=== PATIENT | male | born 1960 | race Caucasian/White ===

== ENCOUNTER 2018-07-15 19:54 | Inpatient (IN) | payer OTHER, MEDICAID ==
[~2018-07-15] VITALS: Ht 177.8 cm; Wt 168.8 kg
[2018-07-15] MEDS ORDERED: BENA20 PO (20:08)
[2018-07-15] MEDS ORDERED: OXYC10 PO (20:08)
[2018-07-15] MEDS ORDERED: BACL10TA PO (20:08)
[2018-07-15] MEDS ORDERED: LEVO125 PO (20:08)
[2018-07-15] MEDS ORDERED: CARV25 PO (20:08)
[2018-07-15] MEDS ORDERED: SPIR50 PO (20:08)
[2018-07-15] MEDS ORDERED: MORP15 PO (20:08)
[2018-07-15] MEDS ORDERED: OxyCODONE HCL/ACETAMINOPHEN 5-325 MG TABLET PO ONE (22:00)
[2018-07-15] MEDS ORDERED: CEPHALEXIN MONOHYDRATE 500 MG CAPSULE PO ONE (22:00)
[2018-07-15 22:08] LABS: BASOPHILS % (AUTO) 0.6 % (0.0-2.0); EOSINOPHILS % (AUTO) 1.6 % (1.0-6.0); HEMATOCRIT 44.5 % (41-53); HEMOGLOBIN 15.3 g/dL (13.5-17.5); LYMPHOCYTES # (AUTO) 1.5 K/uL (1.0-4.8); LYMPHOCYTES % (AUTO) 17.4 % (22.0-44.0); MEAN CORPUSCULAR HEMOGLOBIN 29.9 pg (26.0-34.0); MEAN CORPUSCULAR HGB CONC 34.4 G/dL (31.0-37.0); MEAN CORPUSCULAR VOLUME 87 fL (80-100); MONOCYTES # (AUTO) 0.8 K/uL (0.1-1.0); MONOCYTES % (AUTO) 9.2 % (2.0-9.0); NEUTROPHILS % (AUTO) 71.2 % (40.0-70.0); PLATELET COUNT (AUTO) 146 K/uL (150-450); RED BLOOD CELL COUNT(AUTO) 5.13 MIL/uL (4.50-5.90); RED CELL DISTRIBUTION WIDTH 14.4 % (11.5-14.5)
[2018-07-15 22:10] LABS: ANION GAP 7 mmol/L (8-16); CALCIUM, TOTAL 8.6 mg/dL (8.8-10.5); CARBON DIOXIDE 29 mmol/L (22-29); CHLORIDE 104 mmol/L (98-107); CREATININE 0.79 mg/dL (0.60-1.30); GLOMERULAR FILTR. RATE CALC > 60 mL/min (>60); GLUCOSE,RANDOM 114 mg/dL (70-110); POTASSIUM 3.8 mmol/L (3.5-5.1); SODIUM SERUM 140 mmol/L (136-145); UREA NITROGEN, BLOOD 16 mg/dL (7-18)
[2018-07-15 22:16] LABS: ALANINE AMINOTRANSFERASE 44 U/L (12-78); ALBUMIN 3.1 g/dL (3.4-5.0); ALKALINE PHOSPHATASE 66 U/L (46-116); ASPARTATE AMINOTRANSFERASE 28 U/L (15-37); BILIRUBIN,TOTAL 0.5 mg/dL (0.1-1.0)
[2018-07-15 23:16] LABS: AMPHET/METH SCREEN,URINE NEGATIVE (NEGATIVE); BARBITURATE SCREEN, URINE NEGATIVE (NEGATIVE); BENZODIAZEPINES SCREEN,URINE NEGATIVE (NEGATIVE); CANNABINOID SCREEN,URINE NEGATIVE (NEGATIVE); COCAINE SCREEN,URINE NEGATIVE (NEGATIVE); METHADONE SCREEN, URINE NEGATIVE (NEGATIVE); OPIATE SCREEN,URINE POSITIVE (NEGATIVE)
[2018-07-15 23:17] LABS: PHENCYCLIDINE SCREEN,URINE NEGATIVE (NEGATIVE)
[2018-07-15] MEDS: HALOPERIDOL 5 MG TABLET PO PRN (23:42)
[2018-07-15] MEDS: LORazepam 2 MG TABLET PO PRN (23:42)
[2018-07-16 04:55] LABS: APPEARANCE,URINE CLEAR (CLEAR); BILIRUBIN,URINE NEGATIVE (NEGATIVE); GLUCOSE, URINE (UA) NEGATIVE (NEGATIVE); KETONES,URINE NEGATIVE (NEGATIVE); LEUKOCYTE ESTERASE ,URINE NEGATIVE (NEGATIVE); NITRATE,URINE NEGATIVE (NEGATIVE); OCCULT BLOOD,URINE NEGATIVE (NEGATIVE); PH,URINE 6.5 (5.0-8.0); PROTEIN,URINE NEGATIVE (NEGATIVE)
[2018-07-16 06:59] LABS: CHOL/HDL RATIO 4.4 (4.2-7.3); CHOLESTEROL 131 mg/dL (131-200); HDL CHOLESTEROL 30 mg/dL (40-60); LDL CHOL (CALC.) 85 mg/dL (0-130); TRIGLYCERIDES 80 mg/dL (15-150)
[2018-07-16] MEDS ORDERED: CARVEDILOL 3.125 MG TABLET PO ONE (08:45)
[2018-07-16] MEDS ORDERED: BENAZEPRIL HCL 20 MG TABLET PO ONE (08:45)
[2018-07-16] MEDS ORDERED: DOCUSATE SODIUM 100 MG CAPSULE PO PRN (11:00)
[2018-07-16] MEDS ORDERED: MAGNESIUM HYDROXIDE SUSPENSION 30 ML UDCUP PO PRN (11:00)
[2018-07-16] MEDS ORDERED: NICOTINE 14 MG/24 HOUR PATCH TD PRN ×2 (11:00→13:45)
[2018-07-16] MEDS ORDERED: CloNIDine HCL 0.1 MG TABLET PO PRN (11:00)
[2018-07-16] MEDS ORDERED: MAG HYDROX/AL HYDROX/SIMETH ES 30 ML SUSPENSION UDCUP PO PRN (11:00)
[2018-07-16] MEDS ORDERED: ACETAMINOPHEN 325 MG TABLET PO PRN (11:00)
[2018-07-16] MEDS ORDERED: IBUPROFEN 400 MG TABLET PO PRN (11:00)
[2018-07-16] MEDS ORDERED: PETROLATUM,WHITE 71 GM JELLY TP PRN (11:00)
[2018-07-16] MEDS ORDERED: ALBUTEROL SULFATE HFA 90 MCG/PUFF 8 GM INHALER IH PRN (11:00)
[2018-07-16] MEDS ORDERED: ONDANSETRON HCL 4 MG TABLET PO PRN (11:00)
[2018-07-16] MEDS ORDERED: LOPERAMIDE HCL 2 MG CAPSULE PO PRN (11:00)
[2018-07-16] MEDS ORDERED: GuaiFENesin/D-METHORPHAN [SUGAR-FREE] 200-20MG/10 ML SYRUP UDCUP PO PRN (11:00)
[2018-07-16] MEDS: HydrALAZINE HCL 25 MG TABLET PO SCH ×2 (11:30→17:23)
[2018-07-16 15:29] VITALS: BP 147/77
[2018-07-16] MEDS: NYSTATIN 15 GM POWDER BOTTLE TP SCH (17:23)
[2018-07-16] MEDS: CEPHALEXIN MONOHYDRATE 500 MG CAPSULE PO SCH (17:23)
[2018-07-16] MEDS: SULFAMETHOX/TRIMETH DS 800-160 MG/TABLET PO SCH (17:23)
[2018-07-16 18:30] VITALS: BP 157/88
[2018-07-16] MEDS ORDERED: CARVEDILOL 25 MG TABLET PO SCH (21:00)
[2018-07-16] MEDS: ZOLPIDEM TARTRATE 10 MG TABLET PO PRN (23:05)
[2018-07-17 06:30] VITALS: BP 166/78
[2018-07-17] MEDS ORDERED: LEVOTHYROXINE SODIUM 125 MCG TABLET PO SCH (06:30)
[2018-07-17] MEDS: LEVOTHYROXINE SODIUM 125 MCG TABLET PO SCH (06:39)
[2018-07-17 08:45] VITALS: BP 186/106
[2018-07-17] MEDS: SULFAMETHOX/TRIMETH DS 800-160 MG/TABLET PO SCH ×2 (08:52→17:45)
[2018-07-17] MEDS: CARVEDILOL 25 MG TABLET PO SCH ×2 (08:52→17:44)
[2018-07-17] MEDS: CEPHALEXIN MONOHYDRATE 500 MG CAPSULE PO SCH ×3 (08:52→17:44)
[2018-07-17] MEDS: HydrALAZINE HCL 25 MG TABLET PO SCH ×2 (08:52→17:45)
[2018-07-17] MEDS: BENAZEPRIL HCL 20 MG TABLET PO SCH (08:52)
[2018-07-17] MEDS: SPIRONOLACTONE 50 MG TABLET PO SCH (08:52)
[2018-07-17 09:00] VITALS: BP 152/84
[2018-07-17] MEDS ORDERED: BENAZEPRIL HCL 20 MG TABLET PO SCH (09:00)
[2018-07-17] MEDS: NYSTATIN 15 GM POWDER BOTTLE TP SCH ×3 (09:00→18:00)
[2018-07-17] MEDS ORDERED: SPIRONOLACTONE 50 MG TABLET PO SCH (09:00)
[2018-07-17 10:00] VITALS: BP 152/84
[2018-07-17] MEDS: SERTRALINE HCL 50 MG TABLET PO SCH (16:15)
[2018-07-17 17:38] LABS: GLUCOMETER DEV NAME(LOC) 3EX 1; GLUCOSE,POINT OF CARE 91 MG/DL (70-110)
[2018-07-17 18:00] VITALS: BP 150/85
[2018-07-17] MEDS: ZOLPIDEM TARTRATE 10 MG TABLET PO PRN (23:18)
[2018-07-18 01:15] VITALS: BP 153/98
[2018-07-18] MEDS: LORazepam 2 MG TABLET PO PRN (01:23)
[2018-07-18] MEDS: LEVOTHYROXINE SODIUM 125 MCG TABLET PO SCH (06:43)
[2018-07-18 08:01] VITALS: BP 164/118
[2018-07-18] MEDS: CARVEDILOL 25 MG TABLET PO SCH ×2 (09:25→18:02)
[2018-07-18] MEDS: SULFAMETHOX/TRIMETH DS 800-160 MG/TABLET PO SCH ×2 (09:25→18:02)
[2018-07-18] MEDS: HydrALAZINE HCL 25 MG TABLET PO SCH ×3 (09:25→18:02)
[2018-07-18] MEDS: CEPHALEXIN MONOHYDRATE 500 MG CAPSULE PO SCH ×3 (09:25→18:02)
[2018-07-18] MEDS: BENAZEPRIL HCL 20 MG TABLET PO SCH (09:25)
[2018-07-18] MEDS: SERTRALINE HCL 50 MG TABLET PO SCH (09:25)
[2018-07-18] MEDS: NYSTATIN 15 GM POWDER BOTTLE TP SCH ×3 (09:26→18:02)
[2018-07-18] MEDS: SPIRONOLACTONE 50 MG TABLET PO SCH (09:26)
[2018-07-18 13:13] VITALS: BP 135/83
[2018-07-18 17:00] VITALS: BP 140/96
[2018-07-18] MEDS: ZOLPIDEM TARTRATE 10 MG TABLET PO PRN (21:40)
[2018-07-19] MEDS: LEVOTHYROXINE SODIUM 125 MCG TABLET PO SCH (06:54)
[2018-07-19 08:15] VITALS: BP 165/100
[2018-07-19] MEDS: NYSTATIN 15 GM POWDER BOTTLE TP SCH ×3 (09:02→16:32)
[2018-07-19] MEDS: BENAZEPRIL HCL 20 MG TABLET PO SCH (09:03)
[2018-07-19] MEDS: SERTRALINE HCL 50 MG TABLET PO SCH (09:03)
[2018-07-19] MEDS: HydrALAZINE HCL 25 MG TABLET PO SCH ×2 (09:03→12:57)
[2018-07-19] MEDS: SULFAMETHOX/TRIMETH DS 800-160 MG/TABLET PO SCH ×2 (09:03→16:32)
[2018-07-19] MEDS: CARVEDILOL 25 MG TABLET PO SCH ×2 (09:03→17:00)
[2018-07-19] MEDS: SPIRONOLACTONE 50 MG TABLET PO SCH (09:03)
[2018-07-19] MEDS: CEPHALEXIN MONOHYDRATE 500 MG CAPSULE PO SCH ×3 (09:03→16:31)
[2018-07-19 12:57] VITALS: BP 164/80
[2018-07-19 16:30] VITALS: BP 151/89
[2018-07-19] MEDS: HydrALAZINE HCL 50 MG TABLET PO SCH (16:31)
[2018-07-19] MEDS: ZOLPIDEM TARTRATE 10 MG TABLET PO PRN (20:15)
[2018-07-19] MEDS: HALOPERIDOL 5 MG TABLET PO PRN (20:19)
[2018-07-20 00:05] VITALS: BP 156/97
[2018-07-20] MEDS: LORazepam 2 MG TABLET PO PRN (00:11)
[2018-07-20] MEDS: LEVOTHYROXINE SODIUM 125 MCG TABLET PO SCH (06:59)
[2018-07-20] MEDS: CARVEDILOL 25 MG TABLET PO SCH ×2 (08:55→16:50)
[2018-07-20] MEDS: BENAZEPRIL HCL 20 MG TABLET PO SCH (08:56)
[2018-07-20] MEDS: SPIRONOLACTONE 50 MG TABLET PO SCH (08:56)
[2018-07-20] MEDS: SULFAMETHOX/TRIMETH DS 800-160 MG/TABLET PO SCH ×2 (08:56→16:50)
[2018-07-20] MEDS: CEPHALEXIN MONOHYDRATE 500 MG CAPSULE PO SCH ×3 (08:56→16:50)
[2018-07-20] MEDS: HydrALAZINE HCL 50 MG TABLET PO SCH ×3 (08:56→16:49)
[2018-07-20] MEDS: SERTRALINE HCL 50 MG TABLET PO SCH (08:56)
[2018-07-20] MEDS: NYSTATIN 15 GM POWDER BOTTLE TP SCH ×3 (08:57→16:50)
[2018-07-20 09:00] VITALS: BP 165/94
[2018-07-20 13:00] VITALS: BP 132/72
[2018-07-20] MEDS: BuPROPion HCL XL 150 MG ER TABLET PO SCH (13:17)
[2018-07-20 16:35] VITALS: BP 139/90
[2018-07-20] MEDS: ZOLPIDEM TARTRATE 10 MG TABLET PO PRN (21:18)
[2018-07-21 00:57] VITALS: BP 137/85
[2018-07-21] MEDS: HALOPERIDOL 5 MG TABLET PO PRN ×2 (00:59→23:48)
[2018-07-21] MEDS: LEVOTHYROXINE SODIUM 125 MCG TABLET PO SCH (07:14)
[2018-07-21] MEDS: SPIRONOLACTONE 50 MG TABLET PO SCH (08:00)
[2018-07-21] MEDS: BENAZEPRIL HCL 20 MG TABLET PO SCH (08:00)
[2018-07-21] MEDS: SULFAMETHOX/TRIMETH DS 800-160 MG/TABLET PO SCH ×2 (08:00→16:35)
[2018-07-21] MEDS: CARVEDILOL 25 MG TABLET PO SCH ×2 (08:00→16:35)
[2018-07-21] MEDS: CEPHALEXIN MONOHYDRATE 500 MG CAPSULE PO SCH ×3 (08:00→16:35)
[2018-07-21] MEDS: BuPROPion HCL XL 150 MG ER TABLET PO SCH (08:00)
[2018-07-21] MEDS: SERTRALINE HCL 50 MG TABLET PO SCH (08:01)
[2018-07-21] MEDS: HydrALAZINE HCL 25 MG TABLET PO SCH ×3 (08:01→16:44)
[2018-07-21] MEDS: NYSTATIN 15 GM POWDER BOTTLE TP SCH ×3 (08:08→16:39)
[2018-07-21 08:17] VITALS: BP 134/76
[2018-07-21] MEDS: LORazepam 2 MG TABLET PO PRN ×2 (10:05→23:48)
[2018-07-21 17:40] VITALS: BP 147/79
[2018-07-22] MEDS: LEVOTHYROXINE SODIUM 125 MCG TABLET PO SCH (07:12)
[2018-07-22] MEDS: NYSTATIN 15 GM POWDER BOTTLE TP SCH ×3 (09:00→16:33)
[2018-07-22] MEDS: BuPROPion HCL XL 150 MG ER TABLET PO SCH (09:00)
[2018-07-22] MEDS: CARVEDILOL 25 MG TABLET PO SCH ×2 (09:11→16:33)
[2018-07-22] MEDS: SPIRONOLACTONE 50 MG TABLET PO SCH (09:12)
[2018-07-22] MEDS: HydrALAZINE HCL 25 MG TABLET PO SCH ×3 (09:12→16:33)
[2018-07-22] MEDS: CEPHALEXIN MONOHYDRATE 500 MG CAPSULE PO SCH ×3 (09:12→16:33)
[2018-07-22] MEDS: BENAZEPRIL HCL 20 MG TABLET PO SCH (09:12)
[2018-07-22] MEDS: SERTRALINE HCL 50 MG TABLET PO SCH (09:12)
[2018-07-22] MEDS: SULFAMETHOX/TRIMETH DS 800-160 MG/TABLET PO SCH ×2 (09:13→16:33)
[2018-07-22 10:09] VITALS: BP 130/78
[2018-07-22] MEDS: DULoxetine HCL 30 MG CAPSULE PO SCH (12:20)
[2018-07-22 17:30] VITALS: BP 141/93
[2018-07-22] MEDS: LORazepam 2 MG TABLET PO PRN (21:25)
[2018-07-22] MEDS: HALOPERIDOL 5 MG TABLET PO PRN (21:25)
[2018-07-22] MEDS: ZOLPIDEM TARTRATE 10 MG TABLET PO PRN (22:16)
[2018-07-23] MEDS: LEVOTHYROXINE SODIUM 125 MCG TABLET PO SCH (07:13)
[2018-07-23] MEDS: SPIRONOLACTONE 50 MG TABLET PO SCH ×2 (09:00→09:17)
[2018-07-23] MEDS: SERTRALINE HCL 50 MG TABLET PO SCH ×2 (09:00→09:17)
[2018-07-23] MEDS: SULFAMETHOX/TRIMETH DS 800-160 MG/TABLET PO SCH ×2 (09:17→16:15)
[2018-07-23] MEDS: CEPHALEXIN MONOHYDRATE 500 MG CAPSULE PO SCH ×3 (09:17→16:15)
[2018-07-23] MEDS: BENAZEPRIL HCL 20 MG TABLET PO SCH ×2 (09:17→16:15)
[2018-07-23] MEDS: CARVEDILOL 25 MG TABLET PO SCH ×2 (09:17→16:15)
[2018-07-23] MEDS: HydrALAZINE HCL 25 MG TABLET PO SCH ×3 (09:17→16:15)
[2018-07-23] MEDS: DULoxetine HCL 30 MG CAPSULE PO SCH (09:17)
[2018-07-23] MEDS: NYSTATIN 15 GM POWDER BOTTLE TP SCH ×3 (09:18→16:15)
[2018-07-23 09:30] VITALS: BP 159/99
[2018-07-23 19:13] VITALS: BP 123/69
[2018-07-23] MEDS: ZOLPIDEM TARTRATE 10 MG TABLET PO PRN (20:57)
[2018-07-23] MEDS: LORazepam 2 MG TABLET PO PRN (23:42)
[2018-07-23] MEDS: HALOPERIDOL 5 MG TABLET PO PRN (23:42)
[2018-07-24] MEDS: LEVOTHYROXINE SODIUM 125 MCG TABLET PO SCH (07:05)
[2018-07-24 08:34] VITALS: BP 148/85
[2018-07-24] MEDS: BENAZEPRIL HCL 20 MG TABLET PO SCH (08:58)
[2018-07-24] MEDS: HydrALAZINE HCL 25 MG TABLET PO SCH ×2 (08:58→12:39)
[2018-07-24] MEDS: SPIRONOLACTONE 50 MG TABLET PO SCH (08:58)
[2018-07-24] MEDS: CEPHALEXIN MONOHYDRATE 500 MG CAPSULE PO SCH ×2 (08:58→12:39)
[2018-07-24] MEDS: SULFAMETHOX/TRIMETH DS 800-160 MG/TABLET PO SCH (08:58)
[2018-07-24] MEDS: CARVEDILOL 25 MG TABLET PO SCH (08:58)
[2018-07-24] MEDS: NYSTATIN 15 GM POWDER BOTTLE TP SCH ×2 (09:00→13:02)
[2018-07-24] MEDS: DULoxetine HCL 30 MG CAPSULE PO SCH (09:00)
[2018-07-24] MEDS: SERTRALINE HCL 50 MG TABLET PO SCH (09:00)
[2018-07-24] MEDS ORDERED: DULO30CA2 PO (09:15)
[2018-07-24] MEDS ORDERED: SERT50TA12 PO (09:15)
[2018-07-24] MEDS ORDERED: CEPH500 PO (09:19)
[2018-07-24] MEDS ORDERED: NYST15PO3 TP (09:20)
[2018-07-24] MEDS ORDERED: SULF1TAB42 PO (09:20)
[2018-07-24] MEDS ORDERED: HYDR25TA84 PO (09:22)
[2018-07-24] MEDS ORDERED: NYST30CR9 TP (09:31)
== END 2018-07-24 15:15 | disposition home or self-care (01) | DRG 885 ==
LOC: EMS 19:55 → 3EI 07-16 13:27 → EMS 07-16 13:30 → 3EX 07-17 18:50
PROVIDERS: ADMIT Psychiatry & Neurology Psychiatry; ATTEND Psychiatry & Neurology Psychiatry
DX: F33.2 Major depressive disorder, recurrent severe without psychotic features (principal); Z68.43 Body mass index [BMI] 50.0-59.9, adult; F11.20 Opioid dependence, uncomplicated; L03.311 Cellulitis of abdominal wall; R45.851 Suicidal ideations; L03.116 Cellulitis of left lower limb; L03.115 Cellulitis of right lower limb; E03.9 Hypothyroidism, unspecified; E66.01 Morbid (severe) obesity due to excess calories; I10 Essential (primary) hypertension; Z91.041 Radiographic dye allergy status; Z91.040 Latex allergy status; Z59.0 Homelessness; Z91.5 Personal history of self-harm; Z79.899 Other long term (current) drug therapy; Z79.890 Hormone replacement therapy; Z71.51 Drug abuse counseling and surveillance of drug abuser; Z28.21 Immunization not carried out because of patient refusal
CPT/HCPCS: G0378; G0480

== ENCOUNTER 2018-09-30 04:19 | Inpatient (IN) | payer OTHER, MEDICAID ==
[~2018-09-30] VITALS: Ht 177.8 cm; Wt 161.0 kg
[~2018-09-30 04:19] MED LIST: BENA20 PO; CARV25 PO; CEPH500 PO; DULO30CA2 PO; HYDR25TA84 PO; LEVO125 PO; NYST30CR9 TP; SERT50TA12 PO; SPIR50 PO; SULF1TAB42 PO
[2018-09-30 05:24] LABS: BASOPHILS % (AUTO) 0.5 % (0.0-2.0); EOSINOPHILS % (AUTO) 1.5 % (1.0-6.0); HEMATOCRIT 46.8 % (41-53); HEMOGLOBIN 16.1 g/dL (13.5-17.5); LYMPHOCYTES # (AUTO) 1.5 K/uL (1.0-4.8); LYMPHOCYTES % (AUTO) 18.2 % (22.0-44.0); MEAN CORPUSCULAR HEMOGLOBIN 30.4 pg (26.0-34.0); MEAN CORPUSCULAR HGB CONC 34.4 G/dL (31.0-37.0); MEAN CORPUSCULAR VOLUME 88 fL (80-100); MONOCYTES # (AUTO) 0.7 K/uL (0.1-1.0); MONOCYTES % (AUTO) 8.9 % (2.0-9.0); NEUTROPHILS # (AUTO) 5.7 K/uL (1.8-7.7); NEUTROPHILS % (AUTO) 70.9 % (40.0-70.0); PLATELET COUNT (AUTO) 141 K/uL (150-450); RED CELL DISTRIBUTION WIDTH 14.8 % (11.5-14.5)
[2018-09-30 05:30] LABS: ANION GAP 10 mmol/L (8-16); CALCIUM, TOTAL 8.9 mg/dL (8.8-10.5); CARBON DIOXIDE 27 mmol/L (22-29); CHLORIDE 100 mmol/L (98-107); CREATININE 0.75 mg/dL (0.60-1.30); GLOMERULAR FILTR. RATE CALC > 60 mL/min (>60); GLUCOSE,RANDOM 111 mg/dL (70-110); POTASSIUM 3.5 mmol/L (3.5-5.1); SODIUM SERUM 137 mmol/L (136-145); UREA NITROGEN, BLOOD 16 mg/dL (7-18)
[2018-09-30 05:35] LABS: ALANINE AMINOTRANSFERASE 38 U/L (12-78); ALBUMIN 3.6 g/dL (3.4-5.0); ALKALINE PHOSPHATASE 63 U/L (46-116); ASPARTATE AMINOTRANSFERASE 25 U/L (15-37); BILIRUBIN,TOTAL 0.7 mg/dL (0.1-1.0); TOTAL PROTEIN, SERUM 7.8 g/dL (6.4-8.2)
[2018-09-30] MEDS ORDERED: LORazepam 2 MG TABLET PO PRN (06:00)
[2018-09-30] MEDS ORDERED: HALOPERIDOL 5 MG TABLET PO PRN (06:00)
[2018-09-30 10:13] LABS: BILIRUBIN,URINE NEGATIVE (NEGATIVE); GLUCOSE, URINE (UA) NEGATIVE (NEGATIVE); KETONES,URINE NEGATIVE (NEGATIVE); LEUKOCYTE ESTERASE ,URINE NEGATIVE (NEGATIVE); NITRATE,URINE NEGATIVE (NEGATIVE); OCCULT BLOOD,URINE NEGATIVE (NEGATIVE); PROTEIN,URINE NEGATIVE (NEGATIVE); UROBILINOGEN,URINE 0.2 mg/dL (<=1.0)
[2018-09-30 10:16] LABS: APPEARANCE,URINE HAZY (CLEAR)
[2018-09-30 10:19] LABS: AMPHET/METH SCREEN,URINE NEGATIVE (NEGATIVE); BARBITURATE SCREEN, URINE NEGATIVE (NEGATIVE); BENZODIAZEPINES SCREEN,URINE NEGATIVE (NEGATIVE); CANNABINOID SCREEN,URINE NEGATIVE (NEGATIVE); COCAINE SCREEN,URINE NEGATIVE (NEGATIVE); METHADONE SCREEN, URINE NEGATIVE (NEGATIVE); OPIATE SCREEN,URINE NEGATIVE (NEGATIVE); PHENCYCLIDINE SCREEN,URINE NEGATIVE (NEGATIVE)
[2018-09-30 19:05] VITALS: BP 167/82
[2018-09-30] MEDS ORDERED: LOPERAMIDE HCL 2 MG CAPSULE PO PRN (19:30)
[2018-09-30] MEDS ORDERED: DOCUSATE SODIUM 100 MG CAPSULE PO PRN (19:30)
[2018-09-30] MEDS ORDERED: MAG HYDROX/AL HYDROX/SIMETH ES 30 ML SUSPENSION UDCUP PO PRN (19:30)
[2018-09-30] MEDS ORDERED: ALBUTEROL SULFATE HFA 90 MCG/PUFF 8 GM INHALER IH PRN (19:30)
[2018-09-30] MEDS ORDERED: ONDANSETRON HCL 4 MG TABLET PO PRN (19:30)
[2018-09-30] MEDS ORDERED: CloNIDine HCL 0.1 MG TABLET PO PRN (19:30)
[2018-09-30] MEDS ORDERED: GuaiFENesin/D-METHORPHAN [SUGAR-FREE] 200-20MG/10 ML SYRUP UDCUP PO PRN (19:30)
[2018-09-30] MEDS ORDERED: NICOTINE 14 MG/24 HOUR PATCH TD PRN (19:30)
[2018-09-30] MEDS ORDERED: IBUPROFEN 400 MG TABLET PO PRN (19:30)
[2018-09-30] MEDS ORDERED: ACETAMINOPHEN 325 MG TABLET PO PRN (19:30)
[2018-09-30] MEDS ORDERED: MAGNESIUM HYDROXIDE SUSPENSION 30 ML UDCUP PO PRN (19:30)
[2018-09-30] MEDS ORDERED: PETROLATUM,WHITE 71 GM JELLY TP PRN (19:30)
[2018-10-01] MEDS: LEVOTHYROXINE SODIUM 125 MCG TABLET PO SCH (07:02)
[2018-10-01 08:00] VITALS: BP 138/66
[2018-10-01 08:32] LABS: HEMOGLOBIN A1C 5.3 % (4.5-6.2)
[2018-10-01] MEDS: SPIRONOLACTONE 50 MG TABLET PO SCH (09:00)
[2018-10-01] MEDS: BENAZEPRIL HCL 20 MG TABLET PO SCH ×2 (09:02→17:40)
[2018-10-01] MEDS: CARVEDILOL 25 MG TABLET PO SCH ×2 (09:02→17:40)
[2018-10-01] MEDS: HydrALAZINE HCL 25 MG TABLET PO SCH ×3 (09:03→17:40)
[2018-10-01] MEDS: NYSTATIN 30 GM CREAM TP SCH ×3 (09:05→17:39)
[2018-10-01 09:10] LABS: ALANINE AMINOTRANSFERASE 41 U/L (12-78); ALBUMIN 3.5 g/dL (3.4-5.0); ALKALINE PHOSPHATASE 60 U/L (46-116); ANION GAP 7 mmol/L (8-16); ASPARTATE AMINOTRANSFERASE 34 U/L (15-37); CALCIUM, TOTAL 8.6 mg/dL (8.8-10.5); CARBON DIOXIDE 29 mmol/L (22-29); CHLORIDE 103 mmol/L (98-107); CHOL/HDL RATIO 4.6 (4.2-7.3); CHOLESTEROL 157 mg/dL (131-200); GLOMERULAR FILTR. RATE CALC > 60 mL/min (>60); GLUCOSE,RANDOM 97 mg/dL (70-110); HDL CHOLESTEROL 34 mg/dL (40-60); LDL CHOL (CALC.) 109 mg/dL (0-130); POTASSIUM 3.7 mmol/L (3.5-5.1); SODIUM SERUM 139 mmol/L (136-145); THYROID STIMULATING HORMONE 24.88 uIU/mL (0.36-3.74); TOTAL PROTEIN, SERUM 7.5 g/dL (6.4-8.2); TRIGLYCERIDES 69 mg/dL (15-150); UREA NITROGEN, BLOOD 10 mg/dL (7-18)
[2018-10-01] MEDS ORDERED: SERTRALINE HCL 50 MG TABLET PO SCH (13:45)
[2018-10-01] MEDS: DULoxetine HCL 30 MG CAPSULE PO SCH (13:56)
[2018-10-01] MEDS: SERTRALINE HCL 100 MG TABLET PO SCH (13:56)
[2018-10-01 20:30] VITALS: BP 133/56
[2018-10-02] MEDS: ZOLPIDEM TARTRATE 10 MG TABLET PO PRN (00:19)
[2018-10-02] MEDS: LEVOTHYROXINE SODIUM 125 MCG TABLET PO SCH (07:11)
[2018-10-02 08:18] VITALS: BP 159/80
[2018-10-02] MEDS: DULoxetine HCL 30 MG CAPSULE PO SCH (09:00)
[2018-10-02] MEDS: SERTRALINE HCL 100 MG TABLET PO SCH (09:00)
[2018-10-02] MEDS: SPIRONOLACTONE 50 MG TABLET PO SCH (09:00)
[2018-10-02] MEDS: BENAZEPRIL HCL 20 MG TABLET PO SCH ×2 (09:00→17:50)
[2018-10-02] MEDS: NYSTATIN 30 GM CREAM TP SCH ×3 (09:00→17:00)
[2018-10-02] MEDS: CARVEDILOL 25 MG TABLET PO SCH ×2 (09:00→17:50)
[2018-10-02] MEDS: HydrALAZINE HCL 25 MG TABLET PO SCH ×3 (09:00→17:00)
[2018-10-02 16:36] VITALS: BP 145/101
[2018-10-03 02:45] VITALS: BP 158/96
[2018-10-03] MEDS: ZOLPIDEM TARTRATE 10 MG TABLET PO PRN ×2 (02:53→23:04)
[2018-10-03] MEDS: LEVOTHYROXINE SODIUM 125 MCG TABLET PO SCH (06:50)
[2018-10-03] MEDS: DULoxetine HCL 30 MG CAPSULE PO SCH ×2 (08:39→09:00)
[2018-10-03] MEDS: CARVEDILOL 25 MG TABLET PO SCH ×3 (08:39→16:38)
[2018-10-03] MEDS: BENAZEPRIL HCL 20 MG TABLET PO SCH ×3 (08:39→16:38)
[2018-10-03] MEDS: HydrALAZINE HCL 25 MG TABLET PO SCH ×4 (08:39→16:38)
[2018-10-03] MEDS: SPIRONOLACTONE 50 MG TABLET PO SCH ×2 (08:39→09:00)
[2018-10-03] MEDS: SERTRALINE HCL 100 MG TABLET PO SCH (09:00)
[2018-10-03] MEDS: NYSTATIN 30 GM CREAM TP SCH ×3 (09:00→16:39)
[2018-10-03 15:58] LABS: FREE T4 (FREE THYROXINE) 0.75 ng/dL (0.76-1.46)
[2018-10-03 19:16] VITALS: BP 136/98
[2018-10-04] MEDS: LEVOTHYROXINE SODIUM 125 MCG TABLET PO SCH (07:06)
[2018-10-04 08:00] VITALS: BP 160/90
[2018-10-04] MEDS: HydrALAZINE HCL 25 MG TABLET PO SCH ×3 (08:34→16:59)
[2018-10-04] MEDS: SPIRONOLACTONE 50 MG TABLET PO SCH (08:34)
[2018-10-04] MEDS: NYSTATIN 30 GM CREAM TP SCH ×3 (08:34→16:59)
[2018-10-04] MEDS: DULoxetine HCL 30 MG CAPSULE PO SCH (08:34)
[2018-10-04] MEDS: CARVEDILOL 25 MG TABLET PO SCH ×2 (08:34→16:59)
[2018-10-04] MEDS: BENAZEPRIL HCL 20 MG TABLET PO SCH ×2 (08:34→16:59)
[2018-10-04] MEDS: SERTRALINE HCL 100 MG TABLET PO SCH (08:34)
[2018-10-04 09:00] VITALS: BP 154/88
[2018-10-04 16:48] VITALS: BP 146/90
[2018-10-04] MEDS: ZOLPIDEM TARTRATE 10 MG TABLET PO PRN (22:50)
[2018-10-05] MEDS: LEVOTHYROXINE SODIUM 125 MCG TABLET PO SCH (07:00)
[2018-10-05 08:05] VITALS: BP 152/92
[2018-10-05] MEDS: SPIRONOLACTONE 50 MG TABLET PO SCH (08:40)
[2018-10-05] MEDS: DULoxetine HCL 30 MG CAPSULE PO SCH (08:41)
[2018-10-05] MEDS: HydrALAZINE HCL 25 MG TABLET PO SCH ×3 (08:41→16:37)
[2018-10-05] MEDS: CARVEDILOL 25 MG TABLET PO SCH ×2 (08:41→16:37)
[2018-10-05] MEDS: BENAZEPRIL HCL 20 MG TABLET PO SCH ×2 (08:41→16:37)
[2018-10-05] MEDS: SERTRALINE HCL 100 MG TABLET PO SCH (08:42)
[2018-10-05] MEDS: NYSTATIN 30 GM CREAM TP SCH ×3 (08:46→17:06)
[2018-10-05] MEDS: ZOLPIDEM TARTRATE 10 MG TABLET PO PRN (20:50)
[2018-10-05 21:13] VITALS: BP 153/86
[2018-10-06 02:12] VITALS: BP 178/102
[2018-10-06] MEDS: LEVOTHYROXINE SODIUM 125 MCG TABLET PO SCH (06:30)
[2018-10-06 08:05] VITALS: BP 169/103
[2018-10-06] MEDS: CARVEDILOL 25 MG TABLET PO SCH ×2 (08:17→16:39)
[2018-10-06] MEDS: BENAZEPRIL HCL 20 MG TABLET PO SCH ×2 (08:18→16:39)
[2018-10-06] MEDS: DULoxetine HCL 30 MG CAPSULE PO SCH (08:18)
[2018-10-06] MEDS: SERTRALINE HCL 100 MG TABLET PO SCH (08:18)
[2018-10-06] MEDS: HydrALAZINE HCL 25 MG TABLET PO SCH ×3 (08:18→16:39)
[2018-10-06] MEDS: SPIRONOLACTONE 50 MG TABLET PO SCH (08:23)
[2018-10-06] MEDS: TAMSULOSIN HCL 0.4 MG CAPSULE PO SCH (08:23)
[2018-10-06] MEDS: NYSTATIN 30 GM CREAM TP SCH ×3 (08:23→16:39)
[2018-10-06 21:54] VITALS: BP 156/79
[2018-10-07] MEDS: LEVOTHYROXINE SODIUM 125 MCG TABLET PO SCH (06:59)
[2018-10-07] MEDS: DULoxetine HCL 30 MG CAPSULE PO SCH (08:15)
[2018-10-07] MEDS: CARVEDILOL 25 MG TABLET PO SCH ×2 (08:15→16:44)
[2018-10-07] MEDS: BENAZEPRIL HCL 20 MG TABLET PO SCH ×2 (08:15→16:44)
[2018-10-07] MEDS: SPIRONOLACTONE 50 MG TABLET PO SCH (08:16)
[2018-10-07] MEDS: NYSTATIN 30 GM CREAM TP SCH ×3 (08:16→18:51)
[2018-10-07] MEDS: TAMSULOSIN HCL 0.4 MG CAPSULE PO SCH (08:16)
[2018-10-07] MEDS: SERTRALINE HCL 100 MG TABLET PO SCH (08:16)
[2018-10-07] MEDS: HydrALAZINE HCL 25 MG TABLET PO SCH ×3 (08:16→16:44)
[2018-10-07 08:30] VITALS: BP 148/92
[2018-10-07 17:00] VITALS: BP 143/76
[2018-10-07] MEDS: ZOLPIDEM TARTRATE 10 MG TABLET PO PRN (21:40)
[2018-10-08 06:25] VITALS: BP 149/103
[2018-10-08] MEDS: LEVOTHYROXINE SODIUM 125 MCG TABLET PO SCH (06:52)
[2018-10-08] MEDS: HydrALAZINE HCL 25 MG TABLET PO SCH ×3 (08:18→16:54)
[2018-10-08] MEDS: CARVEDILOL 25 MG TABLET PO SCH ×2 (08:19→16:54)
[2018-10-08] MEDS: BENAZEPRIL HCL 20 MG TABLET PO SCH ×2 (08:19→16:54)
[2018-10-08] MEDS: DULoxetine HCL 30 MG CAPSULE PO SCH (08:19)
[2018-10-08] MEDS: SERTRALINE HCL 100 MG TABLET PO SCH (08:19)
[2018-10-08] MEDS: TAMSULOSIN HCL 0.4 MG CAPSULE PO SCH (08:19)
[2018-10-08] MEDS: NYSTATIN 30 GM CREAM TP SCH ×3 (08:20→16:54)
[2018-10-08] MEDS: SPIRONOLACTONE 50 MG TABLET PO SCH (08:20)
[2018-10-08 08:30] VITALS: BP 137/86
[2018-10-08 16:53] VITALS: BP 139/80
[2018-10-08] MEDS: ZOLPIDEM TARTRATE 10 MG TABLET PO PRN (21:18)
[2018-10-09 04:15] VITALS: BP 158/94
[2018-10-09] MEDS: LEVOTHYROXINE SODIUM 125 MCG TABLET PO SCH (06:42)
[2018-10-09] MEDS: SPIRONOLACTONE 50 MG TABLET PO SCH (08:15)
[2018-10-09] MEDS: CARVEDILOL 25 MG TABLET PO SCH ×2 (08:15→16:21)
[2018-10-09] MEDS: DULoxetine HCL 30 MG CAPSULE PO SCH (08:16)
[2018-10-09] MEDS: SERTRALINE HCL 100 MG TABLET PO SCH (08:16)
[2018-10-09] MEDS: BENAZEPRIL HCL 20 MG TABLET PO SCH ×2 (08:16→16:21)
[2018-10-09] MEDS: TAMSULOSIN HCL 0.4 MG CAPSULE PO SCH (08:16)
[2018-10-09] MEDS: HydrALAZINE HCL 25 MG TABLET PO SCH ×3 (08:16→16:21)
[2018-10-09] MEDS: NYSTATIN 30 GM CREAM TP SCH ×3 (08:18→16:21)
[2018-10-09 10:00] VITALS: BP 130/74
[2018-10-09 20:02] VITALS: BP 132/75
[2018-10-09] MEDS ORDERED: SERT100T12 PO (23:44)
[2018-10-09] MEDS ORDERED: DULO30CA2 PO (23:44)
[2018-10-10] MEDS: LEVOTHYROXINE SODIUM 125 MCG TABLET PO SCH (06:46)
[2018-10-10 08:05] VITALS: BP 150/107
[2018-10-10] MEDS: NYSTATIN 30 GM CREAM TP SCH (08:49)
[2018-10-10] MEDS: DULoxetine HCL 30 MG CAPSULE PO SCH (08:49)
[2018-10-10] MEDS: TAMSULOSIN HCL 0.4 MG CAPSULE PO SCH (08:49)
[2018-10-10] MEDS: SPIRONOLACTONE 50 MG TABLET PO SCH (08:49)
[2018-10-10] MEDS: HydrALAZINE HCL 25 MG TABLET PO SCH (08:50)
[2018-10-10] MEDS: SERTRALINE HCL 100 MG TABLET PO SCH (08:50)
[2018-10-10] MEDS: BENAZEPRIL HCL 20 MG TABLET PO SCH (08:56)
[2018-10-10] MEDS: CARVEDILOL 25 MG TABLET PO SCH (08:57)
[2018-10-10] MEDS ORDERED: TAMS0.4C32 PO (09:05)
== END 2018-10-10 13:20 | disposition home or self-care (01) | DRG 885 ==
LOC: EMS 04:19 → 3EI 10:00 → 3EX 16:10
DX: F33.2 Major depressive disorder, recurrent severe without psychotic features (principal); Z68.43 Body mass index [BMI] 50.0-59.9, adult; R45.851 Suicidal ideations; D69.6 Thrombocytopenia, unspecified; E03.9 Hypothyroidism, unspecified; E66.01 Morbid (severe) obesity due to excess calories; F43.10 Post-traumatic stress disorder, unspecified; G47.00 Insomnia, unspecified; G89.29 Other chronic pain; I11.0 Hypertensive heart disease with heart failure; I50.9 Heart failure, unspecified; N40.0 Benign prostatic hyperplasia without lower urinary tract symptoms; Z59.0 Homelessness; Z79.899 Other long term (current) drug therapy; Z91.5 Personal history of self-harm; Z91.040 Latex allergy status; Z91.041 Radiographic dye allergy status
CPT/HCPCS: 83036; 84153; 84439; 84443; 97110; 97116; 97162; 97167; 97530; 97535; G0378; G0480